=== PATIENT | male | born 1975 | race Caucasian/White ===

== ENCOUNTER 2017-02-04 20:55 | Observation (INO) | payer OTHER ==
[~2017-02-04 20:55] MED LIST: BACTRIM DS TABL1 TAB PO; CLINDAMYCIN HC300 MG PO; IBUPROFEN800 MG; NORCO 5/325 TAB1 TAB PO
[2017-02-04] MEDS ORDERED: NEXIUM40 M1 PO (22:01)
[2017-02-05 00:49] LABS: BLOOD UREA NITROGEN 23 mg/dl (6-24); CALCIUM 8.5 mg/dl (8.5-10.5); CARBON DIOXIDE-VENOUS 27 mmol/L (22-32); CHLORIDE 107 mmol/l (96-110); CREATININE 1.39 mg/dl (0.60-1.30); GLUCOSE 82 mg/dL (70-110); SODIUM 141 mmol/L (135-145); eGFR VALUE FOR BLACK 72 mL/Min
[2017-02-05 00:50] LABS: ANION GAP 11 mmol/L (0-20); MAGNESIUM 2.2 mg/dl (1.3-2.6)
[2017-02-05] MEDS ORDERED: IBUPROFEN800 M1 PO (04:10)
[2017-02-05] MEDS ORDERED: FLONASE ALLERG9.9 ML (04:10)
[2017-02-05 06:03] LABS: ANION GAP 11 mmol/L (0-20); BLOOD UREA NITROGEN 23 mg/dl (6-24); CALCIUM 8.4 mg/dl (8.5-10.5); CARBON DIOXIDE-VENOUS 28 mmol/L (22-32); CHLORIDE 106 mmol/l (96-110); CREATININE 1.47 mg/dl (0.60-1.30); POTASSIUM 3.7 mmol/L (3.7-5.1); SODIUM 141 mmol/L (135-145); eGFR VALUE FOR BLACK 68 mL/Min
[2017-02-05 06:04] LABS: GLUCOSE 125 mg/dL (70-110)
[2017-02-05 06:13] LABS: ALB/GLOB RATIO 1.2 (0.8-2.0); ALBUMIN 3.5 g/dl (3.5-5.0); ALKALINE PHOSPHATASE 33 U/L (33-138); ALT/SGPT 51 U/L (12-78); ANION GAP 11 mmol/L (0-20); AST/SGOT 36 U/L (10-40); BILIRUBIN,TOTAL 0.4 mg/dl (0.0-1.5); BLOOD UREA NITROGEN 23 mg/dl (6-24); C-REACTIVE PROTEIN 0.3 mg/dl (0-0.9); CALCIUM 7.9 mg/dl (8.5-10.5); CARBON DIOXIDE-VENOUS 27 mmol/L (22-32); CHLORIDE 107 mmol/l (96-110); CKMB 2.6 ng/ml (<3.6); CREATININE 1.48 mg/dl (0.60-1.30); GLUCOSE 123 mg/dL (70-110); POTASSIUM 3.7 mmol/L (3.7-5.1); SODIUM 141 mmol/L (135-145); eGFR VALUE FOR BLACK 67 mL/Min
[2017-02-06] MEDS ORDERED: MEDROL4 M1 PO (14:38)
[2017-02-06] MEDS ORDERED: ROXICODONE5 M2 PO (14:51)
[2017-02-06] MEDS ORDERED: CYCLOBENZAPRINE5 M1 PO (14:55)
== END 2017-02-06 15:10 ==
LOC: EDMED 20:55 → EMR2 02-05 02:06 → CAR1 02-05 03:12
PROVIDERS: Emergency Medicine; ADMIT Internal Medicine
DX: M48.06 Spinal stenosis, lumbar region (principal); M51.36 Other intervertebral disc degeneration, lumbar region; D18.09 Hemangioma of other sites; G89.29 Other chronic pain; I10 Essential (primary) hypertension; K21.9 Gastro-esophageal reflux disease without esophagitis; M62.830 Muscle spasm of back; Z79.899 Other long term (current) drug therapy; Z88.0 Allergy status to penicillin; Z88.1 Allergy status to other antibiotic agents; Z88.8 Allergy status to other drugs, medicaments and biological substances; Z98.890 Other specified postprocedural states
CPT/HCPCS: G0378; G8978-GP-CK; G8979-GP-CI; J1170; J1885; J3360; J7030